=== PATIENT | male | born 1945 | race Caucasian/White ===

== ENCOUNTER 2016-04-10 08:30 | Outpatient (CLI) | payer MEDICARE, OTHER | END 2016-04-10 08:31 | disposition home or self-care (01) | DX: M47.26 Other spondylosis with radiculopathy, lumbar region (principal) ==

== ENCOUNTER 2017-07-29 14:43 | Outpatient (CLI) | payer MEDICARE, OTHER ==
--- NOTE | 2017-07-29 17:22 | Ultrasound Report ---
RIGHT ARM ARTERIAL DUPLEX: 07/29/2017 CLINICAL INDICATION: Cold fingers at times. TECHNIQUE: Real-time sonographic vascular imaging was performed by the gum mixer through the right upper extremity utilizing both color-flow and Doppler flow analysis. Multiple appeals representative static images were saved for review. 3 RIGHT DUPLEX FINDINGS LEFT -- INNOMINATE -- 84 P SUBCLAVIAN -- 96 M -- 77 D -- 92 P AXILLARY -- 72 D -- 65 P BRACHIAL -- 105 D -- 89 P RADIAL -- 120 D -- -- -- 74 P ULNAR -- 89 D -- -- -- -- -- FINDINGS: Waveforms through the right arm are predominantly triphasic. There is no evidence of a focal velocity increase to suggest a hemodynamically significant stenosis. IMPRESSION: NO EVIDENCE OF A FOCAL HEMODYNAMICALLY SIGNIFICANT ARTERIAL STENOSIS IN THE RIGHT ARM. TD: 07/29/2017 17:21 table 07/30/17jll MEGHANN
== END 2017-07-29 14:44 | disposition home or self-care (01) ==
LOC: DI 14:43
PROVIDERS: ATTEND Registered Nurse
DX: I73.00 Raynaud's syndrome without gangrene (principal)

== ENCOUNTER 2017-09-07 09:16 | Outpatient (CLI) | payer MEDICARE, OTHER | END 2017-09-07 09:17 | disposition home or self-care (01) | LOC: SC 09:16 | PROVIDERS: ATTEND Internal Medicine Pulmonary Disease | DX: F51.04 Psychophysiologic insomnia (principal); R53.83 Other fatigue | CPT/HCPCS: 99203; G0463; 99212 ==

== ENCOUNTER 2017-10-21 21:07 | Outpatient (CLI) | payer MEDICARE, OTHER | END 2017-10-21 21:08 | disposition home or self-care (01) | LOC: SC 21:07 | PROVIDERS: ATTEND Internal Medicine Pulmonary Disease | DX: G47.61 Periodic limb movement disorder (principal) | CPT/HCPCS: 95810 ==

== ENCOUNTER 2019-04-19 11:00 | Outpatient (CLI) | payer MEDICARE, OTHER ==
--- NOTE | 2019-04-19 15:13 | XRAY Report ---
Reason: DYSPNEA, UNSPECIFIED Procedure Date: 04/19/2019 Accession Number: [id number] / [id number] Procedure: XRS - Chest 2 View X-Ray CPT Code: 47635 Final Report FULL RESULT: EXAM: CHEST RADIOGRAPHY EXAM DATE: 04/19/2019 11:07 AM. CLINICAL HISTORY: DYSPNEA, UNSPECIFIED. COMPARISON: None. TECHNIQUE: 2 views. FINDINGS: Lungs/Pleura: Moderately large left pleural effusion associated passive atelectasis. Left upper lobe lobulated 4 x 6 cm masslike density at the level of the aortic arch. Grossly clear right lung. No right effusion. Mediastinum: Heart size difficult to assess due to the size of the effusion Other: Degenerative change in the spine. IMPRESSION: Moderately large left pleural effusion and associated airspace disease with left upper lung mass. Suggest further evaluation by contrast-enhanced chest CT. Results called to Arcelia Chan 04/19/19 [facility]
== END 2019-04-19 11:01 | disposition home or self-care (01) ==
LOC: DI.S 11:00
PROVIDERS: ATTEND Nurse Practitioner Family
DX: J90 Pleural effusion, not elsewhere classified (principal); R91.8 Other nonspecific abnormal finding of lung field
CPT/HCPCS: 36415; 71046; 80048

== ENCOUNTER 2019-04-19 13:30 | Outpatient (CLI) | payer MEDICARE, OTHER ==
[2019-04-19 18:12] LABS: CALCIUM 9.2 mg/dL (8.5-10.3); CREATININE 1.1 mg/dL (0.6-1.2)
== END 2019-04-19 13:31 | disposition home or self-care (01) ==
LOC: LAB.S 13:30
PROVIDERS: ATTEND Nurse Practitioner Family
DX: R91.8 Other nonspecific abnormal finding of lung field (principal)
CPT/HCPCS: 36415; 80048

== ENCOUNTER 2019-04-20 09:54 | Outpatient (CLI) | payer MEDICARE, OTHER ==
[2019-04-20] MEDS ORDERED: IOVERSOL 320 100 ML VIAL IVP ONE ×2 (10:11→11:40)
--- NOTE | 2019-04-20 12:04 | CT Report ---
Reason: LUNG MASS Procedure Date: 04/20/2019 Accession Number: [id number] / [id number] Procedure: CT - CHEST W CPT Code: Final Report FULL RESULT: EXAM: CT CHEST EXAM DATE: 04/20/2019 10:30 AM. CLINICAL HISTORY: Lung mass. COMPARISONS: None. TECHNIQUE: Routine helical CT imaging was performed through the chest. IV contrast: None. Reconstructions: Coronal and sagittal. In accordance with CT protocol optimization, one or more of the following dose reduction techniques were utilized for this exam: automated exposure control, adjustment of mA and/or KV based on patient size, or use of iterative reconstructive technique. FINDINGS: Lungs/Pleura: 6.2 x 5.8 x 4.8 cm soft tissue mass seen in the medial left upper lobe extending to the anterior left lung apex along the left paramediastinal soft tissues. The soft tissue mass extends along the mediastinal soft tissues up to 6 cm in craniocaudad extent and AP extent up to 6.2 cm. There is a moderate to large left pleural effusion. There is lingular/inferior left upper lobe and left lower lobe consolidative changes and volume loss. Thickening and nodularity seen along the posterior inferior pleura seen best on axial images 96-104, series 3. Linear band of scar/atelectasis in the left upper lobe. 2 mm nodule inferior right upper lobe image 185, series 4. No pneumothorax. No vascular congestion. Mediastinum: Heart size normal. Coronary calcified plaque. Small pericardial effusion. Small hiatal hernia. Soft tissue thickening of the hilum and left mediastinal soft tissue superiorly is present. AP window lymph node is seen measuring 13 x 11 mm and 14 x 13 mm with other small lymph nodes in the mediastinum. Visualized thyroid gland is unremarkable. Bones: Degenerative changes of the thoracic spine. No acute osseous abnormalities are identified. No osseous lesions. Degenerative changes of both shoulders. Visualized Abdomen: No hepatic lesions are identified. Visualized gallbladder, pancreas, spleen, and kidneys are unremarkable except for low attenuation lesion anterior mid left kidney measuring 14 mm. Abdominal aortic calcified plaque. Left adrenal nodule indeterminate measuring up to 12 mm noted. Right adrenal gland is mildly thickened. Other: None. IMPRESSION: 1. Left medial upper lobe 6.2 cm mass abutting the left superior mediastinum extending to the left hilum and a moderate to large left pleural effusion. Findings are most concerning for bronchogenic lesion. Thickening and nodularity involving the inferior medial left pleura is present. 2. Inferior left upper lobe/lingular and left lower lobe compressive atelectasis. 3. Mildly prominent mediastinal specifically AP window adenopathy with associated mediastinal edema and soft tissue thickening most concerning for metastatic involvement. 4. Left adrenal 12 mm nodule and right adrenal thickening and nodularity. [facility] The call report notification system was initiated by Dr. Luan Johnson at 11:57 AM on 04/20/2019. The above call report findings were discussed with RICH Harrell by Dr. Luan Johnson at 12:30 PM on 04/20/2019.
== END 2019-04-20 09:55 | disposition home or self-care (01) ==
LOC: DI 09:54
PROVIDERS: ATTEND Nurse Practitioner Family
DX: R91.8 Other nonspecific abnormal finding of lung field (principal); J90 Pleural effusion, not elsewhere classified; J98.11 Atelectasis; E27.8 Other specified disorders of adrenal gland
CPT/HCPCS: 71260; Q9967

== ENCOUNTER 2019-04-22 11:52 | Outpatient (CLI) | payer MEDICARE, OTHER ==
[2019-04-22 17:38] LABS: INR 1.1 (0.8-1.2); PT - PROTHROMBIN TIME 12.2 secs (9.9-12.6)
[2019-04-22 17:54] LABS: PARTIAL THROMBOPLASTIN TIME 23.7 secs (24.9-33.3)
== END 2019-04-22 11:53 | disposition home or self-care (01) ==
LOC: LAB.S 11:52
PROVIDERS: ATTEND Nurse Practitioner Family
DX: R91.8 Other nonspecific abnormal finding of lung field (principal); Z79.82 Long term (current) use of aspirin
CPT/HCPCS: 36415; 85610; 85730

== ENCOUNTER 2019-05-02 16:32 | Outpatient (CLI) | payer MEDICARE, OTHER | END 2019-05-02 16:33 | disposition E | LOC: EMS 16:32 | PROVIDERS: ATTEND Surgery | DX: I46.9 Cardiac arrest, cause unspecified (principal) ==